=== PATIENT | male | born 1990 | race Two or more races ===

== ENCOUNTER 2024-05-02 17:15 | Emergency (ER) | payer OTHER ==
[2024-05-02] MEDS: Lidocaine 1% 50 ML MDV INJECT ONE (21:24)
[2024-05-02] MEDS: Diphtheria,Pertussis(Acell),Tetanus Vaccine 0.5 ML Syringe IM ONE (21:25)
[2024-05-02] MEDS: Cephalexin 500 MG Cap PO ONE (22:22)
== END 2024-05-02 22:28 | disposition home or self-care (01) ==
LOC: MW.ED 17:15
DX: S67.193A Crushing injury of left middle finger, initial encounter (principal); S61.213A Laceration without foreign body of left middle finger without damage to nail, initial encounter; Z23 Encounter for immunization; Z79.899 Other long term (current) drug therapy; W23.0XXA Caught, crushed, jammed, or pinched between moving objects, initial encounter
CPT/HCPCS: 12004; 73130; 90471; 90715; 99283; A9270; J2001